=== PATIENT | female | born 2000 | race Caucasian/White ===

== ENCOUNTER 2024-08-02 06:44 | Emergency (ER) | payer OTHER, SELFPAY ==
[2024-08-02] VITALS (10 sets, daily range): BP systolic 95–120; BP diastolic 62–79; PULSE 62–108; RESP 17–32; TEMP 36.6–36.7; O2SAT 98–100
--- OUTSIDE RECORDS SUMMARY | 2024-08-02 07:05 | XMS_ITS | Clinical Summary ---
Author Organization [facility] Address [address] [place] [address] Care Team Providers Care Flask Pusher Name Role Phone Andrea Perry MD Primary Care Provider Allergies No known active allergies Medications magnesium-alumin um-simethicone 200-200-20 MG/5ML suspension Take by mouth every 6 (six) hours as needed for Indigestion . Active omeprazole 20 MG capsule Take 20 mg by mouth daily as needed. Active famotidine 20 MG tablet Take 20 mg by mouth daily as needed for Heartburn. Active ranitidine 75 MG Tab Take 1 tablet by mouth as needed. Active sucralfate 1 G tablet Take 1 tablet (1 g total) by mouth 4 (four) times daily. 120 tablet 03/28/2019 Active Social History Tobacco Use Types Packs/Day Years Used Date Smoking Tobacco: Never Smokeless Tobacco: Never Alcohol Use Standard Drinks/Week Comments No 0 (1 standard drink = 0.6 oz pur e alcohol) AUDIT-C Answer Date Recorded Frequency of Alcohol Consumption Never 03/28/2019 Average Number of Drinks Not on file 019 Frequency of Binge Drinking Not on file 11/2018 Comments No Sex and Gender Information Value Date Recorded Sex Assigned at Not on file Legal Sex Female 5:54 PM [employer] Gender Identity Not on file Sexual Orientation Not on file Last Filed Vital Signs Vital Sign Reading Time Taken Comments Blood Pressure 110/58 03/28/2019 6:45 PM CDT Pulse 62 03/28/2019 6:45 PM CDT Temperature 37.7 C (99.9 F) 03/28/2019 3:32 PM CDT Respiratory Rate 18 03/28/2019 6:45 PM CDT Oxygen Saturation 100% 03/28/2019 6:45 PM CDT Inhaled Oxygen Concentration - - Weight 61.2 kg (135 lb) 03/28/2019 3:32 PM CDT Height 157.5 cm (5' 2 ) 03/28/2019 3:32 PM CDT Body Mass Index 24.69 03/28/2019 3:32 PM CDT Plan of Treatment Health Maintenance Due Date Last Done Comments Cervical Cancer Screening Pa p Smear (Age 21 to 29) Every 3 Years 2000 Cervical Cancer Screening 2000 Annual Physical 2003 HPV Vaccines (1 - 3-dose series) 2015 Hepatitis C 2018 DTaP, Tdap and Td Vaccines ( 1 - Tdap) 2019 Hepatitis B Vaccines (1 of 3 - 19+ 3-dose series) 2019 COVID-19 Vaccine ( - 2023-2 5 season) 2024 Influenza Adult (#1) 2024 Meningococcal B Vaccine Aged Out No l onger eligible based on patient's age to complete this topic Meningococcal Vaccine Aged Out No emilio bernie eligible based on patient's age to complete this topic Pneumococcal Vaccine: Pediat rics (0 to 5 Years) and At-Risk Patients (6 to 64 Years) Aged Out No longer eligible b ased on patient's age to complete this topic RSV Immunizations Under 20 Months Aged Out No longer eligible based on patient's age to complete this topic Insurance [employer] Care Teams Flask Pusher Relationship Specialty Start Date End Date Andrea Perry MD [address] [place] [id number] PCP - General FAMILY PRACTICE 03/28/19
--- OUTSIDE RECORDS SUMMARY | 2024-08-02 07:05 | XMS_ITS | Data Portability ---
Author Organization [facility] [place] Address [address] [place] [address] Care Team Providers Care Flower Picker Name Role Phone [facility] Primary Care Provider Assessment Encounter Date Assessment Date Assessment LastModified by Organization Details LastModified Time 12/31/2023 12/31/2023 Annual gynecological exam performed. Patient will come back in a year unless there are new symptoms. Not available 12/31/2023 14:48:10 Plan of Treatment Reminders Order Date Submit Date Provider Last Modified By Organization Details Last Modified Time Details Appointments None recorded. Lab dhea-sulfat e, serum 2023 024 [facility] (Lab), [address] [place], [address], 4 11:08:47 hormone panel, serum or plasma 2023 024 [facility] (Lab), [address] [place], [address], 4 11:08:48 progesteron e, serum 2023 024 [facility] (Lab), [address] [place], [address], 4 11:08:48 prolactin, serum 2023 024 [facility] (Lab), [address] [place], [address], 4 11:08:48 shbg (sex hormone-bin ding globulin), serum 2023 024 [facility] (Lab), [address], [place], [address], 4 11:08:49 testosteron e free/testos terone total, ratio, serum 2023 024 [facility] (Lab), [address], [place], [address], 4 11:08:49 test, urine 2023 024 [facility], [address], [address], [place], [address], 4 15:41:04 Referral urologist referral 2023 024 [facility], [address] [place] [address], [address], 5 05:01:33 Procedures None recorded. Surgeries None recorded. Imaging US, pelvis, complete 2023 024 SERENA Carl, [address], [address], [place], [address], 5 05:01:33 US, pelvis 2023 024 angelica Carl, [address], [address], [place], [address], 4 18:40:25 US, transvagina l 2023 024 angelica [address], [address], [place], [address], 4 18:40:25 Medication Orders oxybutynin chloride ER 5 mg tablet,exte nded release 24 hr 2022 023 [id number], [address], [place], [id number], 3 15:12:14 oxybutynin chloride ER 5 mg tablet,exte nded release 24 hr 2023 024 [facility] #[id number], [address], [place], [id number], 4 09:30:25 Patient TargetsNo targets recorded. Patient InstructionsNo instructions recorded. Reason for Referral Urologist Referral for Overa ctive urinary bladder Referring Physician: Chuyita Beaulieu, POLE CLIMBER, Encounter Date: 12/31/2023 Results Created Date Observation Date Name Description Value Unit Range Abnormal Flag Note LastModifiedBy Organization Detail LastModifiedTime 12/31/19 24 12/31/2023 DHEA SULFA TE DHEA-sulfate 455 ug/dL Femal e Range s Age(y ) Range (ug/d L) 10-15 34-28 0 15-20 65-36 8 20-25 148-4 07 25-35 99-34 0 35-45 61-33 7 45-55 35-25 6 55-65 19-20 5 65-75 9-246 > 75 12-15 4 Not Available [facility] (Lab) [address] [facility], [place], [address], 01/04/2024 11:08:47 12/31/19 24 12/31/2023 PROGE STERO NE progesterone 0.45 NG/mL This assay was perfo rmed using [employer] ratio n reage nts and test kits. Value s obtai marce with other assay metho ds or kits canno t be used inter hrenandez eably . Femal e Proge stero ne Range s: Folli cular phasE 0.06- 0.89 ng/mL Ovula tion phasE 0.12- 12.00 ng/mL Lutea l phasE 1.83- 23.90 ng/mL Postm enopa usal <0.05 -0.13 ng/mL Healt hy Pregn ant Women 1st Trime ster 11.0- 44.30 2nd Trime ster 25.40 -83.3 0 3rd Trime ster 58.70 -214. 00 Not Available [facility] (Lab) [address] [place], [address], 01/04/2024 11:08:48 12/31/19 24 12/31/2023 PROLA CTIN prolactin, total 9.84 NG/mL 4.79-2 3.30 This assay was perfo rmed using [employer] ratio n reage nts and test kits. Value s obtai marce with other assay metho ds or kits canno t be used inter hernandez eably . Not Available [facility] (Lab) [address] [place], [address], 01/04/2024 11:08:48 12/31/19 24 12/31/2023 FSH, LH, ESTRA DIOL estradiol 40.5 pg/mL This assay was perfo rmed using [employer] ratio n reage nts and test kits. Value s obtai marce with other assay metho ds or kits canno t be used inter hernandez eably . Femal e Estra diol Range s: Folli cular phasE 12.4- 233 pg/mL Ovula tion phasE 41.0- 398 pg/mL Lutea l phasE 22.3- 341 pg/mL Postm enopa usal <5-13 8 pg/mL Healt hy Pregn ant Women 1st Trime ster 154-3 243 pg/mL 2nd Trime ster 1561- 15443 pg/mL 3rd Trime ster 8525- >3000 0 pg/mL Not Available [facility] (Lab) [address] [place], [address], 01/04/2024 11:08:48 12/31/19 24 12/31/2023 FSH, LH, ESTRA DIOL FSH 4.5 mIU/m L This assay was perfo rmed using [employer] ratio n reage nts and test kits. Value s obtai marce with other assay metho ds or kits canno t be used inter hernandez eably . Femal es Folli cular : 3.5-1 2.5 mIU/m L Ovula tion: 4.7-2 1.5 mIU/m L Lutea l: 1.7-7 .7 mIU/m L Postm enopa use: 25.8- 134.8 mIU/m L Not Available [facility] (Lab) [address] [facility], [place], [address], 01/04/2024 11:08:48 12/31/19 24 12/31/2023 FSH, LH, ESTRA DIOL LH 8.7 mIU/m L This assay was perfo rmed using [employer] ratio n reage nts and test kits. Value s obtai marce with other assay metho ds or kits canno t be used inter hernandez eably . Femal es Mid-F ollic ular: 2.4-1 2.6 mIU/m L Mid-C ycle: 14.0- 95.6 mIU/m L Mid-L uteal : 1.0-1 1.4 mIU/m L Postm enopa use: 7.7-5 8.5 mIU/m L Not Available [facility] (Lab) [address] [facility], [place], [address], 01/04/2024 11:08:48 12/31/19 24 12/31/2023 HUMAN SEX HORMO NE MARI NG GLOBU ROGELIO sex hormone binding globulin 27.4 nmole s/L 18.2-1 35.5 Not Available [facility] (Lab) [address] [place], [address], 01/04/2024 11:08:49 12/31/19 24 12/31/2023 TESTO STERO NE, FREE( DIALY SIS) AND TOTAL (LC/M S/MS) testosterone , total 25 NG/dL 2-45 For addit ional infor donald teixeira e refer to http: //taiwo zhou.que stdia gnost ics.c om/fa q/ Total Testo stero neLCM SMSFA Q165 (This link is being provi ded for infor matio nal/ educa chon l purpo ses only. ) This test was devel oped and its juan tical perfo rmanc e benedict cteri stics have been deter mined by [employer] ostic s Jose Manuel [place], [place]. It has not been clear ed or appro camacho by the U.S. Food and Drug Admin istra tion. This assay has been valid ated pursu ant to the CLIA regul ation s and is used for clini tana purpo ses. Not Available [facility] (Lab) [address] [facility], [place], [address], 01/04/2024 11:08:49 12/31/1912/31/2023 TESTO STERO NE, FREE( DIALY SIS) AND TOTAL (LC/M S/MS) testosterone , free 3.4 pg/mL 0.1-6. 4 This test was devel oped and its juan tical perfo rmanc e benedict cteri stics have been deter mined by [employer] ostic s Jose Manuel ls [place], [place]. It has not been clear ed or appro camacho by the U.S. Food and Drug Admin istra tion. This assay has been valid ated pursu ant to the CLIA regul ation s and is used for clini tana purpo ses. Perfo rming Organ izati on Infor [facility] n: Site ID: [id number] Name: [employer] charymarcio s Jose Manuel ls [facility] Addre ss: [id number] [facility] [address] [place], [place] Direc tor: Sarwat Dutta MD PhD Not Available [facility] (Lab) [address] [facility], [place], [address], 01/04/2024 11:08:49 12/31/1912/31/2023 IMAGE GUIDE D PAP, REFLE X HPV IF ASCUS ONLY image guided Pap, reflex HPV ASCUS only SEE RESULT S BELOW CASE REPOR T: Cytol ogy Gynec ologi tana Repor t Case: [id number] Autho gabriel g Provi josefina: Chuyita Beaulieu, DRAWBRIDGE OPERATOR Colle cted: 12/30 1525 Order ing Locat ion: [place] Patho logyenifer Receroldan camacho: 12/31 1048 First Scree n: Kristin Villaseñor, CT Rescr een: Noemi Rene , [place] Speci men: Scree kylah Pap - Image d, Cervi x STATE MENT OF ADEQU ACY: Satis facto ry for evalu ation Trans forma tion zone compo nent prese nt ----- ----- ----- ----- ----- ----- ----- ----- ----- ----- ----- ----- ----- ----- ----- ----- ----- ---- FINAL DIAGN OSIS: Negat hiwot for Intra epith elial Liliana zhou or Loulou rivas (NIL) . Elect saranya ashby by Noemi Rene , CT on 2023 at 4:51 PM ----- ----- ----- ----- ----- ----- ----- ----- ----- ----- ----- ----- ----- ----- ----- ----- ----- ---- COMME NT: This speci men was revie wed by a Cytot echno logis t and/o r Patho logis t (as indic ated in this repor t) after evalu ation using the Thinp rep Imagi ng Syste m. CLINI TANA INFOR MATIO N: Menst rual Statu s: LMP (if appli cable ): Clini tana Histo ry/Pr eviou s Pap: Type of Neopl lionel (if appli cable ): Signi fican t Clini tana Findi ngs: Other Histo ry: Hormo lex (if appli cable ): PAP EDUCA CHON L NOTE: The Pap Test is a scree kylah test with an inher ent false negat hiwot rate. Liqui d-bas ed sampl ing may decre ase, but will not elimi rusty, false negat hiwot resul ts. A negat hiwot resul t does not precl ude the prese nce and/o r devel opmen t of disea se, since the prese nce of abnor mal cells in the sampl e depen ds on the locat ion of the lesio n and sampl ing techn ique. Justin nued regul ar scree kylah is the best metho d of cance r preve ntion . If repor david cytol ogic findi ng do not corre late with physi tana and/o r histo rical findi ngs, furth er inves tigat ion is recom marie d, as clini syd valdez nted. Not Available [facility] (Lab) [address] [facility], [place], [address], 01/05/2024 17:55:44 12/31/19 24 12/31/2023 TRICH OMONA S VAGIN LEONOR (RRNA ) trichomonas vaginalis ribosomal RNA (rrna) Negati ve negati ve Not Available [facility] (Lab) [address] [facility], [place], [address], 01/05/2024 17:55:45 12/31/19 24 12/31/2023 CT/GC (DANIEL) , THINP REP VIAL chlamydia trachomatis, PCR Negati ve negati ve Not Available [facility] (Lab) [address] [facility], [place], [address], 01/05/2024 17:55:45 12/31/19 24 12/31/2023 CT/GC (DANIEL) , THINP REP VIAL neisseria gonorrhoeae, PCR Negati ve negati ve Not Available [facility] (Lab) [address] [facility], [place], [address], 01/05/2024 17:55:45 12/31/19 24 12/31/2023 pregn trina test, urine HCG negati ve Not Available [place] [address], [place], [address], 12/31/2023 15:40:32 01/07/20 24 01/07/2024 US, pelvi s No observ ation record ed. [email or web address] [place] [address], [place], [address], 01/07/2024 15:17:21 01/07/20 24 01/07/2024 US, trans vagin al No observ ation record ed. [email or web address] [place] [address], [place], [address], 01/07/2024 15:17:10 01/07/20 24 01/07/2024 US, pelvi s No observ ation record ed. SERENA Cathleen [address], [place], [address], 01/18/2024 23:15:26 Result Notes None recorded. Procedures Surgical History Date Name Laterality Status Provider Name and Address Organization Details Recorded Time 1 Date of Last Colonoscopy completed [facility] 04/23/2023 14:20:49 1 Colonoscopy completed [facility] 04/23/2023 14:21:58 1 endoscopy completed [facility] 04/23/2023 14:22:34 Imaging Results Imaging Date Name Status LastModified by Organization Details LastModified Time 01/07/2024 US, pelvis completed [email or web address] [place] [address], [place], [address], 01/07/2024 15:17:21 01/07/2024 US, transvaginal completed [email or web address] [address], [place], [address], 01/07/2024 15:17:10 01/07/2024 US, pelvis completed SERENA Cathleen [address], [place], [address], 01/18/2024 23:15:26 Procedure Notes None recorded. Medical Equipment None Reported. Allergies No known drug allergies Medications Name Sig Start Date Stop Date Status Note LastModified by Organization Details LastModified Time pantoprazol e 20 mg tablet,joselo yed release active Not Available Not Available Not Available propranolol 10 mg tablet TAKE 1 TO 2 TABLETS BY MOUTH TWICE DAILY FOR HYPERTHYR OIDISM active Not Available Not Available No t Available pantoprazol e 40 mg tablet,joselo yed release 12/30 completed Not Available Not Available Not Available progesteron e micronized 200 mg capsule TAKE 1 CAPSULE BY MOUTH FOR 12 DAYS IF MENSES NOT STARTED AT THE END OF THE MONTH EACH MONTH 06/18 completed Not Available Not Available Not Available oxybutynin chloride ER 5 mg tablet,exte nded release 24 hr Take 1 tablet(s) every day by oral route as directed 2024 active Not Available Not Available Not Avai lable estradiol 2 mg tablet Take Estradiol 2mg PO with food x 20 days; off for the remainder of the month; then, repeat the first 20 days of each month (IF SPOTTING occurs during this time) for total of 3mos until seen in office. 06/18 completed Not Available Not Available Not Available hydroxyzine HCl 25 mg tablet TAKE 1 TABLET BY MOUTH THREE TIMES DAILY NEEDED FOR ANXIETY 09/23 completed Not Available Not Available Not Available mirtazapine 7.5 mg tablet 12/30 completed Not Available Not Available Not Available nitrofurant oin monohydrate /macrocryst als 100 mg capsule 12/30 completed Not Available Not Available Not Available propranolol 01/20 completed Not Available Not Available Not Available Vitals Date Recorded Body height Body mass index (BMI) Body weight Systolic blood pressure Diastolic blood pressure Provider Name and Address Organization Details Last Updated DateTime 06/18/2023 157.48 cm 24.5 kg/m2 38855.38 g 108 mm[Hg] 73 mm[Hg] Trisha Ye [facility] 14:59:06 Date Recorded Body height Body mass index (BMI) Body weight Systolic blood pressure Diastolic blood pressure Provider Name and Address Organization Details Last Updated DateTime 09/24/2023 157.48 cm 24.1 kg/m2 92111.19 g 101 mm[Hg] 68 mm[Hg] Karina Cole [facility] 4 14:57:35 Date Recorded Body height Body mass index (BMI) Body weight Systolic blood pressure Diastolic blood pressure Provider Name and Address Organization Details Last Updated DateTime 12/31/2023 157.48 cm 23.2 kg/m2 87247.23 g 110 mm[Hg] 69 mm[Hg] Lashon Rivera [facility] 4 14:59:34 Date Recorded Body height Body mass index (BMI) Body weight Systolic blood pressure Diastolic blood pressure Provider Name and Address Organization Details Last Updated DateTime 01/21/2024 157.48 cm 22.8 kg/m2 05162.33 g 119 mm[Hg] 77 mm[Hg] Maris Rodriguez [facility] 4 15:13:29 Social History Question Answer Notes LastModified by Organizat ion Details LastModified Time Tobacco Smoking Status Never [facility]oker [facility] 06/18/2023 14:52:47 What Is Your Level Of Alcohol Consumption? Occasional Information not available 04/23/2023 Are You Blind Or Do You Have Difficulty Seeing? No Information n ot available 04/23/2023 What Is Your Level Of Caffeine Consumption? Moderate Information not available 04/23/2023 In The 14 Days Before Symptom Onset, Have You Had Close Contact With A Laboratory-confirm ed COVID-19 While That Case Was Ill? No Information n ot available 04/23/2023 In The 14 Days Before Symptom Onset, Have You Had Close Contact With A Person Who Is Under Investigation For COVID-19 While That Person Was Ill? No Information not available 04/23/2023 Have You Been To An Area Known To Be High Risk For COVID-19? No Information not available 04/23/2023 Are You Deaf Or Do You Have Serious Difficulty Hearing? No Information not available 04/23/2023 What Type Of Diet Are You Following? REGULAR Information n ot available 04/23/2023 Which Illicit Or Recreational Drugs Have You Used? Marijuana [email or web address] Information not available 06/18/2023 What Is The Highest Grade Or Level Of School You Have Completed Or The Highest Degree You Have Received? 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 Yes Information not available 04/23/2023 Do You Use Protection During Sex? Usually Information not available 04/23/2023 Do You Use Your Seat Belt Or Car Seat Routinely? Yes Information not available 04/23/2023 Do You Have Smoke And Carbon Monoxide Detectors In Your Home? Yes Information not available 04/23/2023 How Much Tobacco Do You Smoke? No Information not available 04/23/2023 Do You Feel Stressed (tense, Restless, Nervous, Or Anxious, Or Unable To Sleep At Night)? [id number] [email or web address] Information not available 12/31/2023 Do You Use Any Illicit Or Recreational Drugs? Yes Information not available 04/23/2023 Do You Use Sunscreen Routinely? No Information not available 04/23/2023 Have You Used IV Drugs? No Information not available 04/23/2023 Sex: Unknown Functional Status Question Answer Note LastModified by Organizat ion Details LastModified Time Do you have difficulty walking or climbing stairs? No Information not available 12/31/2023 Are you able to walk? YESWOREST Information not available 04/23/2023 Are you able to care for yourself? Yes [email or web address] Information not available 12/31/2023 Do you have difficulty dressing or bathing? No Information not available 12/31/2023 What is your exercise level? Moderate Information not available 04/23/2023 Mental Status None recorded. Family History Relationship Description Onset Age of this Age Resolved Age Notes LastModified by Organization Details LastModified Time Father Malignant tumor of colon Not available 2022 14:13:18 Medical History Condition Response Anxiety Disorder Y Acid Reflux (GERD) Y Thyroid Problems Y Gynecological History Statement/Question Response Flow Heavy Date of LMP 12/28/2023 On BCP's at Conception? N N Was last menstrual period normal N STIs/STDs N HPV Vaccine N Duration of Flow (days) 7 Current Control Method None Are cycles usually normal Y Date of Last Colonoscopy 01/21/2021 Frequency of Cycle (Q days) 14 Sexually Active? N Menses Monthly Y Age of first menstrual cycle 13 Date of Last Pap Smear Sexual Problems? N Desired Control Method None LMP Definite N Obstetrics History GPAL:G 0 P 0 0 0 0 Past Encounters Encounter ID Performer Location Encounter Start Date Encounter Closed Date Diagnosis/Indication Diagnosis SNOMED-CT Code Diagnosis ICD10 Code Diagnosis Note [id number] [facility] [address] [address] 04/23/2023 14:09:32 04/23/2023 18:09:28 Abnormal uterine bleeding 0929796108 9100 N93.9 The patient and I discussed the various causes of abnormal uterine bleeding, including polyps, fibroids, hyperplasi a, atypia, anovulatio n, etc. We reviewed the typical evaluation with labs, pelvic US and possible endometria l biopsy. Briefly discussed the options available for treatment (depending on the results of evaluation ) such as hormonal treatment (OCPs, progestins ), Mirena, endometria l ablation, and surgery. We spent more than 45 minutes face to face. Likely do EMBx regardless of TVUS results b/c she has spent at minimum 1yr amenorrhei c-likely from D/C Depo which can take 1yr to 15mos for period to return to normal .H owever, we need to ensure no other issues or risks for cancers.Un elsie jackson verbalized . NOTE: Due for WWE with pap smear but unable to do this testing until not on cycle. Overactive urinary bladder 802098928 N32.81 Counseled on medication R/B's, Most common side effects, & use. All questions were answered to patient satisfacti on. 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 [id number] Fiona Garber [place] [address],[facility] [place] [address] 05/06/2023 14:43:29 05/06/2023 15:17:12 Abnormal uterine bleeding [id number] 9100 N93.9 [id number] Viviane Middleton [facility] [address],[place] [address] 05/08/2023 14:46:41 05/08/2023 16:05:38 Abnormal uterine bleeding [id number] 9100 N93.9 Today we discussed helping the irregular bleeding from post Depo d/c.Does not want to do BC at this time.Revie wed US is wnl and lining is adequate.W e agreed to doing estradiol 2mg 20days then the rest of the month off; then repeat this the first 20 days of each month if has spotting; if no spotting no need to use it. Will f/u x 3mos med check.IF no menses has occurred after d/c each month; will provide prometrium 200mg x 12 days after taking estradiol 2mg the first 20 days. R/B's and need to prevent uterine precancers /cancers with either body having it's own period or using form of progestero ne as uterine lining protectant . Understand ing verbalized . Labs to be completed & will reach out with these results.We agreed to hold off on EMBX for now since US is wnl and lining wnl; but we need to consider it if therapies are not effective and continues to have issues. Time spent in visit is a total of 30mins with at least 50% of visit consisting of counseling and review of plan of care. [id number] Viviane Middleton [facility] [address],[place] [address] 06/18/2023 14:52:25 06/18/2023 15:21:05 Overactive urinary bladder 022671949 N32.81 Doing extremely well on this medication .Night time urination has resolved.A ble to sleep through the night.Wish es to continue.R F sent x 1yr Irregular periods 883903 07 N92.6 Today we discussed use of nextstilli s for management of her current irregular menses; was doing well on the estradiol/ prometrium but when she stopped then the irregular cycles returned.O pen to use of nextstilli s.Samples given after spiritual counselor on this medicaiton . Counseled on medication R/B's, Most common side effects, & use. All questions were answered to patient satisfacti on. Will RTO x 3mos med check or sooner if needed. BOOKER OF OCP:Discus sed all control options in great detail. Pt would like to start ocp. She is aware of the risks and benefits. She does not have any medical condition that is contraindi cated with the use of estrogen containing control. Pt will start her pills on the first friday following the start of her period. She is aware it is not effective for control the first month. She is also aware of the importance of taking at the same time every day. Encouraged use of condoms as the pill does not protect against STD's. Will return in 3 months for med check. Consent was read and signed. Pt verbalized understand ing. Time spent in visit is a total of 30 mins with at least 50% of visit consisting of counseling and review of plan of care. [id number] Viviane Middleton [facility] [address] [address] 09/24/2023 14:50:05 09/24/2023 15:25:52 Overactive urinary bladder 721736753 N32.81 Was doing well on extended release oxybutynin 5mg ER.Medicat ion was recalled and non-ER is not working.We agreed to trial myrbetriq for OAB.She will message us if she feels it is working well.Sampl es given x 30 days. Irregular periods 101951 07 N92.6 Today she has decided to keep menstrual diary and ensure cycles are monthly, regular and staying only 7 days or less; stopped Nextstilli s after 2mos.[place] it worked well for regulating cycles better; but negatively effected her mood (increase anxiety/de pressive feelings). Neg suicidal ideations/ thoughts of self harm. Will f/u on periods at upcoming WWE with pap x 3mos. Time spent in visit is a total of 22 mins with at least 50% of visit consisting of counseling and review of plan of care. [id number] Chuyita DwaincarinaKEYLA [place] [address] [address] 12/31/2023 14:46:23 01/01/2024 10:21:29 Gynecologic examination [id number] Z01.419 WWEpap donedeclin ed STI screenrout ine labs UTD/PCP It is strongly advised to have an annual flu shot and up can obtain at most pharmacies . If you have not had a TDap shot in the last 10 years you should obtain one as well. Discussed with patient & provided with informatio n regarding the HPV vaccine if applicable . Encourage safe sexual practices, to use condoms and limit partners if not already in a monogamous relationsh ip. Do monthly self breast exams. BRCA testing is now available for patients with strong genetic history of female cancer. If interested contact the office. Engage in regular exercise. Avoid tobacco and illicit drugs. This lifestyle behavior pattern will lead to less health conditions and longer life span. If BMI greater than 25 dietary consult advised. Patient received above instructio ns, and questions have been answered. If you have any questions please call or respond to this email. Patient was made aware of the patient portal and may obtain a paper copy of today's plan if desired. Abnormal u terine bleeding [id number] 9100 N93.9 recommende d updated labs and pelvic u/sdiscuss ed BC options - declined at this timeRTC for u/s and MD consult Overactive urinary bladder [id number] N32.81 she would like to restart oxybutynin which significan tly helped her symptomsr/ b/a reviewed - rx sentdiscus sed pelvic floor physical therapyuro logy consult recommende d - referral placed Time spent in visit is a total of 50 mins with at least 50% of visit consisting of counseling and review of plan of care. Screening procedure 2012 5006 Z13.9 [id number] Corina Heredia [place] [address] [address] 01/07/2024 14:28:09 01/07/2024 15:01:58 Abnormal uterine bleeding [id number] 9100 N93.9 [id number] ANAYELI MCKEON MD [place] [address] [address] 01/21/2024 15:02:20 01/21/2024 15:49:47 Anovulation [id number] N97.0 - irregular bleeding likely 2/2 anovulatio n due to possible PCOS vs depo use- labs wnl- pelvic US wnl, lining thin, however polycystic appearing ovaries- at this time, patient does not appear to fit other [place] criteria for PCOS- discussed expectant management (low suspicion for malignant cause of bleeding) vs hormonal cycle control and r/b of each; patient desires expectant management at this time- rtc in 6 months for follow up Health Concerns Section Related Observation LastModified by Organization Detai ls LastModified Time None Recorded Concern Status LastModified by Organization Details LastModified Time None Recorded Advance Directives Directive None Recorded Payers Encounter Date Sequence Insurance Name Policy Number Policy Buck Covered Member ID Buck Member ID Guarantor Name 06/18/2023 1 [facility] ON OR AFTER 12/21/20 (MEDICAID REPLACEMENT - HMO) Elvia Mumper [id number] Elvia Mumper 09/24/2023 1 [facility] ON OR AFTER 12/21/20 (MEDICAID REPLACEMENT - HMO) Elvia Mumper [id number] Elvia Mumper 12/31/2023 1 [facility] ON OR AFTER 12/21/20 (MEDICAID REPLACEMENT - HMO) Elvia Mumper [id number] Elvia Mumper 01/07/2024 1 [facility] ON OR AFTER 12/21/20 (MEDICAID REPLACEMENT - HMO) Elvia Mumper [id number] Elvia Mumper 01/21/2024 1 [facility] ON OR AFTER 12/21/20 (MEDICAID REPLACEMENT - HMO) Elvia Mumper [id number] Elvia Mumper Notes Date Note Type Note Provider Name and Address Organization Details Recorded Time 06/18/2023 text/html Elvia is here to day for a medication check of oxybutynin and E/P for menses. Health Hx was reviewed and updated as reported in chart. Viviane Middleton PATRICK- [address], [place], [address], [facility] 06/18/2023 15:16:40 09/24/2023 text/html Here today for medication check of OAB meds/BCP. [facility] [address], [place], [address], [facility] 09/24/2023 15:25:44 12/31/2023 text/html Annual GYNReport ed bypatient.Menstrual cycle:Irregular cycle intervals;Unexplaine d vaginal bleeding Urinary symptoms:No hematuria; No incontinence;Increas ed urinary frequency Vulva:No genital lesion Vagina:Normal vaginal discharge Breast:No breast pain; No breast lump; No nipple discharge Current Contraception:Condom s Sexual complaints:No sexual complaints; No pain during intercourse; Normal libido Menopausal Symptoms:No menopausal symptoms; Normal vaginal lubrication Psychological symptoms:No depression; No anxiety; No PMDD Preventive measures:Encourage self breast examination; Encourage regular exercise; Encourage no tobacco use; Encourage regular mammograms starting age 40Notes:23yo [id number] every other week for the past 6 monthshas tried OCPs (last took 04/2023) and DMPA (last injection 11/2021) in the past which regulated her periods. Had negative mood changes with OCP so stopped taking after a few months.periods last about 7 days, changing pads every 1-4 hoursNot SA currently, uses condoms when she is saw PCP recently for labs, CBC normal per pt. Mild hyperthyroidism noted per pt, started on propranolol from PCP (has f/u with PCP next week) Overactive bladder for many years, urinating very frequently. Neg dysuria, flank pains, n/v/f. Has been on oxybutynin in the past which worked for her symptoms, wants to restart this. Has never seen urology. neg vaginal d/cneg odorsneg n/v/fneg flu-like symptoms Chuyita Beaulieu PATRICK [address], [place], [address], [facility] 01/01/2024 09:32:17 01/21/2024 text/html Patient presents to discuss labwork and pelvic US. She reports bleeding every other week since July, and prior to that was bleeding every day since January 2023. Was previously on Depo until 11/2021. Was amenorrheic until 11/2022. Then had daily bleeding from January until July. She reports changing her pad 2x per day at this point. Labs were unremarkable and pelvic US overall wnl aside from polycystic appearing ovaries. ANAYELI MCKEON MD [address], [place], [address], [facility] 01/21/2024 15:49:24 OBGyn Episode No OBEpisode recorded.
--- OUTSIDE RECORDS SUMMARY | 2024-08-02 07:05 | XMS_ITS | Clinical Summary ---
Author Organization [facility] Medical Office Building B Address [address] [place] [address] Care Team Providers Care Library Paraprofessional Name Role Phone Latrice Marshall NP Primary Care Provider [phone] Allergies No known active allergies Medications hydrOXYzine (ATARAX) 25 mg tablet Take 1 tablet (25 mg total) by mouth 3 (three) times a day as needed 06/25/19 24 Active famotidine (PEPCID) 20 mg tablet Take 1 tablet (20 mg total) by mouth 2 (two) times a day as needed for indigestion or heartburn 180 tablet 3 07/26/19 25 Active mirtazapine (REMERON) 7.5 mg tablet Take 1 tablet (7.5 mg total) by mouth nightly 06/25/[address] (PROTONIX) 40 mg EC tablet Take 1 tablet (40 mg total) by mouth daily 90 tablet 11/21/19 [address] (PROTONIX) 20 mg EC tablet Take 1 tablet (20 mg total) by mouth daily 90 tablet 3 11/21/19 24 025 Discontinued simethicone (MYLICON) 125 mg chewable tablet Take 1 tablet (125 mg total) by mouth 4 (four) times a day as needed (cramping/bloat ing/gas/nausea) 120 tablet 3 11/21/19 24 025 Discontinued Active Problems Problem Noted Date Diagnosed Date Chronic superficial gastritis without bleeding 0 07/24/2023 Family history of colon cancer in father 024 History of colonoscopy with polypectomy 07/24/19 24 Gastroesophageal reflux disease 12/21/2020 Upper abdominal pain 12/21/2020 Seasonal allergies 12/21/2020 Abdominal cramping 12/21/2020 Encounters Date Type Department Care Team Description 07/26/2024 2:45 PM SPECIAL PROCEDURE TECH Office Visit [facility] Gastroenterology at [address] [place] [address] Hector Johnson NP Gastroesophageal reflux disease with esophagitis without hemorrhage (Primary Dx); Chronic superficial gastritis without bleeding; Family history of colon cancer in father; History of colonoscopy with polypectomy from Last 3 Months Immunizations Name Administration Dates Next Due DTaP 11/12/2005, 2,2000,2000,0 2000 Hep B, Adolescent or Pediatric 2000,2000,2000 HiB 07/24/2001,2000,2000 ,2000 IPV 11/12/2005,2000,2000 ,2000 MMR 11/12/2005,07/24/2001 Meningococcal MCV4P (Menactra) 01/14/2018,2014 Tdap 12/17/2011 Varicella 12/17/2011,12/29/2003 Family History Medical History Relation Name Comments colorectal cancer Father Liver cancer Other grandfather Relation Name Status Comments Father Alive Other grandfather Social History Tobacco Use Types Packs/Day Years Used Date Smoking Tobacco: Never Tobacco Cessation:Counseling Given: Not Answered AUDIT-C Answer Date Recorded Q1: How often do you have a drink containing alc ohol? Monthly or less 07/26/2024 Average Number of Drinks Not on file 025 Frequency of Binge Drinking Not on file 08/2024 Comments Unknown Sex and Gender Information Value Date Recorded Sex Assigned at Not on file Legal Sex Female 7:06 PM SPECIAL PROCEDURE TECH Gender Identity Not on file Sexual Orientation Not on file Obstetrics History Last Filed Vital Signs Vital Sign Reading Time Taken Comments Blood Pressure 89/60 07/26/2024 2:39 PM SPECIAL PROCEDURE TECH Pulse 120 07/26/2024 2:39 PM SPECIAL PROCEDURE TECH Temperature 36.9 C (98.5 F) 01/31/2021 3:25 PM CDT Respiratory Rate 18 07/24/2023 1:13 PM SPECIAL PROCEDURE TECH Oxygen Saturation 98% 07/26/2024 2:39 PM SPECIAL PROCEDURE TECH Inhaled Oxygen Concentration - - Weight 62.7 kg (138 lb 4.8 oz) 07/26/2024 2:39 P M SPECIAL PROCEDURE TECH Height 157.5 cm (5' 2 ) 07/26/2024 2:39 PM SPECIAL PROCEDURE TECH Body Mass Index 25.3 07/26/2024 2:39 PM SPECIAL PROCEDURE TECH Plan of Treatment Health Maintenance Due Date Last Done Comments Cervical Cancer Screening 2000 Depression Screening 2000 Hepatitis C Screening 2000 HPV Vaccines (1 - 3-dose series) 2015 Regular Well Visit/Exam 18-64 2018 DTaP/Tdap/Td Vaccine (7 - Td or Tdap) 12/16/2021 12/17/2011, 11/12/2005, 07/24/2001, Additional history exists Influenza Vaccine (#1) 2024 Varicella Vaccines Completed 12/17/2011, 12/29/2003 Pneumococcal vaccine <65 Aged Out No longer eligible based on patient's age to complete this topic Insurance [facility] Advance Directives For more information, please contact: [phone] * Full Code (Latest Code Status on File) Date Activated Date Inactivated Comments 01/31/2021 12:37 PM 01/31/2021 7:50 PM * Full Code Date Activated Date Inactivated Comments 01/31/2021 12:37 PM 01/31/2021 12:37 PM Care Teams Library Paraprofessional Relationship Specialty Start Date End Date Latrice Marshall NP [address] [place] [address] PCP - General Nurse Practitioner 12/18/20
--- OUTSIDE RECORDS SUMMARY | 2024-08-02 07:05 | XMS_ITS | Referral Summary ---
Author Organization [facility] Medical Office Building B Address [address] [place] [address] Care Team Providers Care Chief I Dispatcher Name Role Phone Latrice Marshall NP Primary Care Provider [phone] Encounters Date Type Department Care Team Description 07/26/2024 2:45 PM ROPE MACHINE SETTER Office Visit [facility] Gastroenterology at [address] [place] [address] Hector Johnson NP Gastroesophageal reflux disease with esophagitis without hemorrhage (Primary Dx); Chronic superficial gastritis without bleeding; Family history of colon cancer in father; History of colonoscopy with polypectomy from Last 3 Months Allergies No known active allergies Medications hydrOXYzine [...] 024 History of colonoscopy with polypectomy 07/24/19 Gastroesophageal reflux disease 12/21/2020 Upper abdominal pain 12/21/2020 Seasonal allergies 12/21/2020 Abdominal cramping 12/21/2020 Immunizations Name Administration Dates Next Due DTaP 11/12/2005, 2,2000,2000,0 2000 Hep B, Adolescent or Pediatric 2000,2000,2000 HiB 07/24/2001,2000,2000 ,2000 IPV 11/12/2005,2000,2000 ,2000 MMR 11/12/2005,07/24/2001 Meningococcal MCV4P (Menactra) 01/14/2018,2014 Tdap 12/17/2011 Varicella 12/17/2011,12/29/2003 Social History Tobacco Use Types Packs/Day Years [...] on file Legal Sex Female 7:06 PM ROPE MACHINE SETTER Gender Identity Not on file Sexual Orientation Not on file Last Filed Vital Signs Vital Sign Reading Time Taken Comments Blood Pressure 89/60 07/26/2024 2:39 PM ROPE MACHINE SETTER Pulse 120 07/26/2024 2:39 PM ROPE MACHINE SETTER Temperature 36.9 C (98.5 F) 01/31/2021 3:25 PM CDT Respiratory Rate 18 07/24/2023 1:13 PM ROPE MACHINE SETTER Oxygen Saturation 98% 07/26/2024 2:39 PM ROPE MACHINE SETTER Inhaled Oxygen Concentration - - Weight 62.7 kg (138 lb 4.8 oz) 07/26/2024 2:39 P M ROPE MACHINE SETTER Height 157.5 cm (5' 2 ) 07/26/2024 2:39 PM ROPE MACHINE SETTER Body Mass Index 25.3 07/26/2024 2:39 PM ROPE MACHINE SETTER Plan of Treatment Not on file Insurance [facility] Advance Directives For more information, please contact: [phone] * Full Code (Latest Code Status on File) Date Activated Date Inactivated Comments 01/31/2021 12:37 PM 01/31/2021 7:50 PM * Full Code Date Activated Date Inactivated Comments 01/31/2021 12:37 PM 01/31/2021 12:37 PM Care Teams Chief I Dispatcher Relationship Specialty Start Date End Date Latrice Marshall NP [address] [place] [address] PCP - General Nurse Practitioner 12/18/20
--- OUTSIDE RECORDS SUMMARY | 2024-08-02 07:05 | XMS_ITS | Encounter Summary ---
Author Organization [facility] Address [facility] [place] [address] Care Team Providers Care Commercial Field Inspector Name Role Phone Andrea Perry MD Primary Care Provider Encounter Details Date Type Department Care Team (Late st Contact Info) Description 11/28/2018 Abstract SFL CONVERSION [address] [place] [address] , Generic Conversion, Social History Tobacco Use Types Packs/Day Years Used Date Smoking Tobacco: Never Assessed Comments Unknown Sex and Gender Information Value Date Recorded Sex Assigned at Not on file Legal Sex Female 5:54 PM CARDIOPULMONARY PHYSICAL THERAPIST Gender Identity Not on file Sexual Orientation Not on file documented as of this encounter Plan of Treatment Not on file documented as of this encounter Visit Diagnoses Not on filedocumented in this encounter Care Teams Commercial Field Inspector Relationship Specialty Start Date End Date Andrea Perry MD [address] [place] [id number] PCP - General FAMILY PRACTICE 03/28/19 documented as of this encounter
--- NOTE | 2024-08-02 07:12 | ED_ITS ---
HPI - Nausea/Vomiting/Diarrhea General Chief complaint: Nausea/Vomiting/Diarrhea Stated complaint: Vomiting Source: patient Mode of arrival: ambulatory History of Present Illness HPI Narrative: 24 years old white female came to the ED by private car complaining of vomiting and diarrhea started last night, vomiting more than 20 times, diarrhea up to 3 times. History of anxiety and marijuana use disorder. She denies any pain, coughing, runny nose, sneezing, sore throat, abdominal pain or back pain or chest pain or shortness of breath Related Data Allergies Allergy/AdvReac Type Severity Reaction Status Date / Time No Known Allergies Allergy Verified 08/02/24 07:05 Review of Systems 2 Review of Systems: All systems reviewed & are unremarkable except as noted in HPI and below Exam 2 Narrative: General appearance: Well-developed, well-nourished Skin: Normal color Head: Normocephalic, nontraumatic Eyes: Clear conjunctiva ENT: Oropharynx normal, ears normal, nose normal Neck: Supple, nontender Chest and respiratory: Airway patent, no respiratory distress, no accessory muscle use Heart: Regular rate/rhythm Abdomen: Soft, nontender, no organomegaly, quiet bowel sounds Vascular: Normal peripheral pulses, normal capillary refill. Musculoskeletal: Normal range of motion, nontender back Neurologic: Alert and oriented ?3, CONSTRUCTION PIT WORKER is normal as tested, no gross motor deficit Course Vital Signs Vital signs: Vital Signs Temperature 36.6 C 08/02/24 06:44 Pulse Rate 108 H 08/02/24 06:44 Respiratory Rate 32 H 08/02/24 06:44 Blood Pressure 101/77 08/02/24 06:44 Pulse Oximetry 100 08/02/24 06:44 Oxygen Delivery Room Air 08/02/24 06:44 Temperature 36.7 C 08/02/24 10:43 Pulse Rate 98 08/02/24 10:43 Respiratory Rate 17 08/02/24 10:43 Blood Pressure 101/62 08/02/24 10:43 Pulse Oximetry 98 08/02/24 10:43 Oxygen Delivery Room Air 08/02/24 10:43 MDM - Nausea/Vomiting/Diarrhea MDM Narrative Medical decision making narrative: patient came with nausea vomiting and diarrhea Vital signs showing heart rate of 108, respiration 32 per minute otherwise insignificant Physical examination showing patient holding vomiting bag in hand with dry heave Differential diagnosis include viral gastroenteritis, marijuana induced hyper emesis, stress like symptoms, electrolyte imbalance, dehydration Blood workup today includes CBC, CMP, lipase showed WBC of 16. 5, potassium 3.4, creatinine 1.2 otherwise insignificant Urinalysis showed no evidence of infection Urine drug screen positive for cannabis Patient tested negative for COVID flu RSV Leukocytosis high likely secondary to pain and stress on vomiting, patient denies any abdominal pain Diagnosis of gastroenteritis secondary viral infection, marijuana, depression/distress. Discharged on Zofran. The pt was discharged to home.the pt,s condition upon discharge was fair,education was provided to the pt in reference to the final impression,discharge study results,treatment,prognosis and need for follow up . Lab Data 08/02/24 07:13 08/02/24 07:13 Labs: Lab Results 08/02/24 08/02/24 08/02/24 Range/Units 07:13 07:14 07:48 WBC 16.5 H (4.8-10.8) K/mm3 RBC 5.02 (4.20-5.40) M/mm3 Hgb 15.4 H (12.0-15.0) g/dL Hct 43.6 (35.0-49.0) % MCV 86.9 (78.0-102.0) fL MCH 30.7 (27.0-31.0) pg MCHC 35.3 (32-36) g/dL RDW 11.1 L (11.6-14.4) % Plt Count 325 (150-420) K/mm3 MPV 10.3 (9.2-11.8) fl Immature Gran % (Auto) Not Reportable Neut % (Auto) Not Reportable Lymph % (Auto) Not Reportable Elbert % (Auto) Not Reportable Eos % (Auto) Not Reportable Baso % (Auto) Not Reportable Lymph # (Auto) Not Reportable Elbert # (Auto) Not Reportable Eos # (Auto) Not Reportable Baso # (Auto) Not Reportable Abs Immat Gran (auto) Not Reportable Absolute Neuts (auto) Not Reportable Absolute Nucleated RBC Not Reportable Total Counted 100 Neutrophils % (Manual) 89 H (46-73) % Band Neutrophils % 0 (0-6) % Lymphocytes % (Manual) 9 L (18-44) % Monocytes % (Manual) 2 L (3-9) % Nucleated RBC % Not Reportable Abs Neuts (Manual) 14.68 H (1.7-7.2) K/mm3 Abs Lymphs (Manual) 1.48 (1.1-4.5) K/mm3 Abs Monocytes (Manual) 0.33 (0.1-0.90) K/mm3 Platelet Estimate Adequate (Adequate) Schistocytes Not Reportable Sodium 138 (136-145) mmol/L Potassium 3.4 L (3.5-5.1) mmol/L Chloride 99 (98-108) mmol/L Carbon Dioxide 16 L (21-32) mmol/L Anion Gap 23 H (4-12) mmol/L BUN 14 (7-18) mg/dL Creatinine 1.22 H (0.55-1.02) mg/dL Estim Creat Clear Calc 50 ml/min Estimated GFR 54 L (59 - ) Glucose 161 H (70-99) mg/dL Calculated Osmolality 289 (285-295) mOsm/kg Calcium 9.3 (8.5-10.1) mg/dL Total Bilirubin 1.7 H (0.00-1.00) mg/dL AST 16 (15-37) U/L ALT 35 (14-59) U/L Alkaline Phosphatase 61 (46-116) U/L Total Protein 8.0 (6.4-8.2) g/dL Albumin 4.5 (3.4-5.0) g/dL Lipase 19 (16-77) U/L Urine Color Yellow (Yellow) Urine Appearance Clear (Clear) Urine pH 7.0 (5.0-8.0) Ur Specific Wilber[place] 1.020 (1.010-1.020) Urine Protein Trace H (Negative) Urine Glucose (UA) Negative (Negative) Urine Ketones 3+ H (Negative) Ur Blood (Man) Trace-intact H (Negative) Urine Nitrate Negative (Negative) Urine Bilirubin Negative (Negative) Urine Urobilinogen 0.2 (0.2-1.0) mg/dL Ur Leukocyte Esterase Negative (Negative) Urine RBC 0-2 (0-2) /hpf Urine WBC None seen (0-3) /hpf Ur Squamous Epith Cells Few (Few) /hpf Urine Bacteria 1+ H (None) /hpf Urine Opiates Screen Negative (Negative) Urine Methadone Screen Negative (Negative) Ur Barbiturates Screen Negative (Negative) Ur Phencyclidine Scrn Negative (Negative) Ur Amphetamine Screen Negative (Negative) U Benzodiazepines Scrn Negative (Negative) Urine Cocaine Screen Negative (Negative) U Cannabinoids Screen Positive A (Negative) Influenza A (RT-PCR) Negative (Negative) Influenza B (RT-PCR) Negative (Negative) RSV (RT-PCR) Negative (Negative) SARS-CoV-2 RNA (RT-PCR) Negative (Negative) Critical Care Time Critical Care Time Critical Care Time: Yes Total Critical Care Time: 30 Discharge Plan Discharge Clinical Impression: Gastroenteritis Patient Disposition: Home, Self-Care Condition: Improved Instructions: Dehydration (DC), Gastroenteritis (ED), Cannabis Use Disorder (ED) Additional Instructions: Return if symptoms are worsening , call your family physician for appointment, take Tylenol as as needed for aches and pain, continue home medications. Patient Language: Portuguese Prescriptions: New ondansetron 4 mg tablet,disintegrating 4 mg PO Q4H 0 Days Qty: 10 0RF Rx Instructions: 1st dose 1-2 hr before radiation Follow-up/Referrals: UNKNOWN,DOCTOR [Non-Staff] - Stand Alone Forms: Work/School Release IP
[2024-08-02 07:27] LABS: Hematocrit 43.6 % (35.0-49.0); Hemoglobin 15.4 g/dL (12.0-15.0); Mean Corpuscular HGB Conc 35.3 g/dL (32-36); Mean Corpuscular Hemoglobin 30.7 pg (27.0-31.0); Mean Corpuscular Volume 86.9 fL (78.0-102.0); Mean Platelet Volume 10.3 fl (9.2-11.8); Platelet Count Result 325 K/mm3 (150-420); Red Blood Count 5.02 M/mm3 (4.20-5.40); Red Cell Distribution Width 11.1 % (11.6-14.4); White Blood Count 16.5 K/mm3 (4.8-10.8)
[2024-08-02 07:45] LABS: Alanine Aminotransferase 35 U/L (14-59); Albumin Level 4.5 g/dL (3.4-5.0); Alkaline Phosphatase 61 U/L (46-116); Anion Gap 23 mmol/L (4-12); Aspartate Amino Transferase 16 U/L (15-37); Bilirubin,Total 1.7 mg/dL (0.00-1.00); Blood Urea Nitrogen 14 mg/dL (7-18); Calcium 9.3 mg/dL (8.5-10.1); Carbon Dioxide 16 mmol/L (21-32); Chloride 99 mmol/L (98-108); Estimated CRCL calculation 50 ml/min; Estimated Glomerular Filt Rate 54; Lipase 19 U/L (16-77); Potassium 3.4 mmol/L (3.5-5.1); Sodium 138 mmol/L (136-145)
[2024-08-02 07:47] LABS: Band Neutrophils Percent 0 % (0-6); Lymphocytes Absolute Manual 1.48 K/mm3 (1.1-4.5); Lymphocytes Percent Manual 9 % (18-44); Monocytes Absolute Manual 0.33 K/mm3 (0.1-0.90); Monocytes Percent Manual 2 % (3-9); Neutrophils Absolute Manual 14.68 K/mm3 (1.7-7.2); Neutrophils Percent Manual 89 % (46-73); Platelet Estimate Adequate (Adequate); Total Cells Counted 100
[2024-08-02] MEDS: SODIUM CHLORIDE 0.9% IV 2,000 ML 999 ML IV CONT (07:48)
[2024-08-02] MEDS: diphenhydrAMINE HCl INJ 50 MG/ML VIAL IV PUSH (07:51)
[2024-08-02] MEDS: ONDANSETRON INJ 4 MG/2 ML VIAL 8 MG IV PUSH (07:53)
[2024-08-02] MEDS: METOCLOPRAMIDE HCL INJ 10 MG/2 ML VIAL IV PUSH (07:59)
--- NOTE | 2024-08-02 09:22 | PC.NURSE ---
Covid culture sent to lab
[2024-08-02 09:28] LABS: Glucose 161 mg/dL (70-99); Osmolality Calculated 289 mOsm/kg (285-295)
[2024-08-02 09:32] LABS: Add Urine Microscopic? YES; Appearance Urine Clear (Clear); Bilirubin Urine Negative (Negative); Blood Urine Trace-intact (Negative); Color Urine Yellow (Yellow); Glucose Urine UA Negative (Negative); Ketones Urine 3+ (Negative); Leukocyte Esterase Ur Negative (Negative); Nitrate Urine Negative (Negative); Protein Urine Trace (Negative); Urobilinogen Urine 0.2 mg/dL (0.2-1.0)
[2024-08-02 09:53] LABS: Amphetamine Screen Urine Negative (Negative); Barbiturate Screen Urine Negative (Negative); Benzodiazepines Screen Urine Negative (Negative); Cannabinoid Screen Urine Positive (Negative); Cocaine Screen Urine Negative (Negative); Methadone Screen Urine Negative (Negative); Opiate Screen Urine Negative (Negative); Phencyclidine Screen Urine Negative (Negative)
[2024-08-02 09:56] LABS: SARS-CoV-2 RNA PCR Negative (Negative)
[2024-08-02 09:58] LABS: Influenza A QL RT-PCR Negative (Negative); Influenza B QL RT-PCR Negative (Negative); RSV RNA, RT-PCR Negative (Negative)
[2024-08-02 10:00] LABS: Bacteria Urine 1+ /hpf; RBC Urine 0-2 /hpf (0-2); Squamous Epithelial Cell Urine Few /hpf (Few); WBC Urine None seen /hpf (0-3)
== END 2024-08-02 10:43 | disposition home or self-care (01) ==
PROVIDERS: Emergency Provider Emergency Medicine
DX: K52.9 Noninfective gastroenteritis and colitis, unspecified (principal); Z20.822 Contact with and (suspected) exposure to COVID-19
CPT/HCPCS: 36415; 80053; 80307; 81001; 83690; 85025; 87637; 96361; 96374; 96375; 99284; J1200; J2405; J2765; J7030